=== PATIENT | male | born 1985 | race Caucasian/White ===

== ENCOUNTER 2018-11-05 08:14 | Day surgery (SDC) | payer MEDICAID ==
[~2018-11-05] VITALS: Ht 180.3 cm; Wt 196.4 kg
[~2018-11-05 08:14] MED LIST: ARMO250T4 PO; BUSP10TA10 PO; LAMO100T89 PO; LANS30TA4 PO; LOSA25TA96 PO; LURA80TA3 PO; MONT10TA21; MULT-1085 PO; TRAZ-251 PO; VENL150C2 PO
[2018-11-05 08:25] VITALS: BP 149/93
[2018-11-05] MEDS ORDERED: MIDAZolam 5mg/5ml vial ONE (08:31)
[2018-11-05] MEDS ORDERED: LIDOcaine Viscous 15ml cup ONE (08:31)
[2018-11-05] MEDS ORDERED: fentaNYL/PF 50MCG/1 ML 2ML syringe ONE (08:31)
[2018-11-05] MEDS ORDERED: PRO100T PO ×2 (08:34→08:42)
[2018-11-05] MEDS ORDERED: LOSA100T57 PO (08:37)
[2018-11-05] MEDS ORDERED: BUSP10TA11 PO (08:42)
[2018-11-05] MEDS ORDERED: PANT-47 PO (08:43)
[2018-11-05] MEDS ORDERED: LAMO100T41 PO (08:43)
[2018-11-05] MEDS ORDERED: LOSA25TA96 PO (08:44)
[2018-11-05] MEDS ORDERED: LURA80TA3 PO (08:44)
[2018-11-05] MEDS ORDERED: VENL-190 (08:45)
[2018-11-05] MEDS ORDERED: MULT-269 PO (08:46)
[2018-11-05 09:38] VITALS: BP 137/77
[2018-11-05 09:48] VITALS: BP 140/87
[2018-11-05 09:58] VITALS: BP 138/80
== END 2018-11-05 10:10 | disposition home or self-care (01) ==
LOC: GI LAB 08:14
PROVIDERS: ATTEND Internal Medicine Gastroenterology
DX: R13.10 Dysphagia, unspecified (principal); K29.50 Unspecified chronic gastritis without bleeding; K31.7 Polyp of stomach and duodenum; K21.0 Gastro-esophageal reflux disease with esophagitis; K44.9 Diaphragmatic hernia without obstruction or gangrene; E66.01 Morbid (severe) obesity due to excess calories; Z79.899 Other long term (current) drug therapy
CPT/HCPCS: 43239; 43251; J2250; J3010; 99152; A4620

== ENCOUNTER 2019-11-14 12:30 | Day surgery (SDC) | payer MEDICAID ==
[~2019-11-14 12:30] MED LIST changes: -ARMO250T4 PO; -BUSP10TA10 PO; +BUSP10TA11 PO; +LAMO100T41 PO; -LAMO100T89 PO; -LANS30TA4 PO; -MONT10TA21; -MULT-1085 PO; +MULT-269 PO; +PANT-47 PO; +PRO100T PO; -TRAZ-251 PO; +VENL-190; -VENL150C2 PO
[2019-11-14] MEDS ORDERED: LIDOcaine 2% 5ml jelly ONE (14:11)
== END 2019-11-14 14:37 | disposition home or self-care (01) ==
LOC: WOUND CARE 12:30
PROVIDERS: ATTEND Nurse Practitioner
DX: L05.91 Pilonidal cyst without abscess (principal); S31.809D Unspecified open wound of unspecified buttock, subsequent encounter; L98.492 Non-pressure chronic ulcer of skin of other sites with fat layer exposed; E66.01 Morbid (severe) obesity due to excess calories; K21.9 Gastro-esophageal reflux disease without esophagitis; K29.50 Unspecified chronic gastritis without bleeding; K44.0 Diaphragmatic hernia with obstruction, without gangrene; F32.9 Major depressive disorder, single episode, unspecified; F41.9 Anxiety disorder, unspecified; F40.240 Claustrophobia; Z86.14 Personal history of Methicillin resistant Staphylococcus aureus infection; Z79.899 Other long term (current) drug therapy; X58.XXXD Exposure to other specified factors, subsequent encounter
CPT/HCPCS: 97597

== ENCOUNTER 2019-11-19 13:28 | Day surgery (SDC) | payer MEDICAID ==
[2019-11-19] MEDS ORDERED: LIDOcaine 2% 5ml jelly ONE (14:33)
== END 2019-11-19 14:50 | disposition home or self-care (01) ==
LOC: WOUND CARE 13:28
PROVIDERS: ATTEND Nurse Practitioner
DX: L05.91 Pilonidal cyst without abscess (principal); S31.809D Unspecified open wound of unspecified buttock, subsequent encounter; E66.01 Morbid (severe) obesity due to excess calories; R13.10 Dysphagia, unspecified; K21.9 Gastro-esophageal reflux disease without esophagitis; K29.50 Unspecified chronic gastritis without bleeding; K44.0 Diaphragmatic hernia with obstruction, without gangrene; F32.9 Major depressive disorder, single episode, unspecified; Z79.899 Other long term (current) drug therapy; Z86.14 Personal history of Methicillin resistant Staphylococcus aureus infection; X58.XXXD Exposure to other specified factors, subsequent encounter
CPT/HCPCS: 97597

== ENCOUNTER 2019-11-26 11:20 | Day surgery (SDC) | payer MEDICAID ==
[2019-11-26] MEDS ORDERED: LIDOcaine 2% 5ml jelly ONE (11:33)
== END 2019-11-26 13:01 | disposition home or self-care (01) ==
LOC: WOUND CARE 11:20
PROVIDERS: ATTEND Nurse Practitioner
DX: L05.91 Pilonidal cyst without abscess (principal); S31.809D Unspecified open wound of unspecified buttock, subsequent encounter; L98.492 Non-pressure chronic ulcer of skin of other sites with fat layer exposed; E66.01 Morbid (severe) obesity due to excess calories; R13.10 Dysphagia, unspecified; K21.9 Gastro-esophageal reflux disease without esophagitis; K29.50 Unspecified chronic gastritis without bleeding; K44.0 Diaphragmatic hernia with obstruction, without gangrene; F32.9 Major depressive disorder, single episode, unspecified; F41.9 Anxiety disorder, unspecified; Z79.899 Other long term (current) drug therapy; Z86.14 Personal history of Methicillin resistant Staphylococcus aureus infection; Z68.44 Body mass index [BMI] 60.0-69.9, adult; X58.XXXD Exposure to other specified factors, subsequent encounter
CPT/HCPCS: 97597

== ENCOUNTER 2019-12-05 09:05 | Outpatient (CLI) | payer MEDICAID ==
[2019-12-05] MEDS ORDERED: LIDOcaine 2% 5ml jelly ONE (09:50)
== END 2019-12-05 23:59 | disposition home or self-care (01) ==
LOC: WOUND CARE 09:05
PROVIDERS: ATTEND Nurse Practitioner
DX: L05.91 Pilonidal cyst without abscess (principal); S31.809D Unspecified open wound of unspecified buttock, subsequent encounter; L98.492 Non-pressure chronic ulcer of skin of other sites with fat layer exposed; E66.01 Morbid (severe) obesity due to excess calories; R13.10 Dysphagia, unspecified; K21.9 Gastro-esophageal reflux disease without esophagitis; K44.0 Diaphragmatic hernia with obstruction, without gangrene; F32.9 Major depressive disorder, single episode, unspecified; F40.240 Claustrophobia; F41.9 Anxiety disorder, unspecified; Z79.899 Other long term (current) drug therapy; Z86.14 Personal history of Methicillin resistant Staphylococcus aureus infection; Z68.44 Body mass index [BMI] 60.0-69.9, adult; X58.XXXD Exposure to other specified factors, subsequent encounter
CPT/HCPCS: 97597

== ENCOUNTER 2019-12-17 10:44 | Outpatient (CLI) | payer MEDICAID ==
[2019-12-17] MEDS ORDERED: LIDOcaine 2% 5ml jelly ONE (11:28)
== END 2019-12-17 23:59 | disposition home or self-care (01) ==
LOC: WOUND CARE 10:44 → EDSTATUS 11:00 → WOUND CARE 23:59
PROVIDERS: ATTEND Nurse Practitioner
DX: L05.91 Pilonidal cyst without abscess (principal); S31.809D Unspecified open wound of unspecified buttock, subsequent encounter; L98.492 Non-pressure chronic ulcer of skin of other sites with fat layer exposed; E66.01 Morbid (severe) obesity due to excess calories; R13.10 Dysphagia, unspecified; K21.9 Gastro-esophageal reflux disease without esophagitis; K44.0 Diaphragmatic hernia with obstruction, without gangrene; F32.9 Major depressive disorder, single episode, unspecified; F40.240 Claustrophobia; F41.9 Anxiety disorder, unspecified; Z79.899 Other long term (current) drug therapy; Z86.14 Personal history of Methicillin resistant Staphylococcus aureus infection; Z68.44 Body mass index [BMI] 60.0-69.9, adult; X58.XXXD Exposure to other specified factors, subsequent encounter
CPT/HCPCS: 97597

== ENCOUNTER 2019-12-24 11:01 | Outpatient (CLI) | payer MEDICAID ==
[2019-12-24] MEDS ORDERED: LIDOcaine 2% 5ml jelly ONE (11:15)
[2019-12-24 12:12] LABS: BASOPHILS % (AUTO) 0 % (0-1); EOSINOPHILS # (AUTO) 0.1 X10'3 (0-0.9); LYMPHOCYTES % (AUTO) 32.1 % (21-51); MEAN CORPUSCULAR HGB CONC 34.2 g/dL (33.0-36.5); MEAN CORPUSCULAR VOLUME 93.7 FL (78-98); MEAN PLATELET VOLUME 8.1 FL (7.4-10.4); MONOCYTES # (AUTO) 0.5 X10'3 (0-0.9); MONOCYTES % (AUTO) 8.1 % (2-12); NEUTROPHILS # (AUTO) 3.6 X10'3 (1.8-7.7); NEUTROPHILS % (AUTO) 58.8 % (42-75); PRE OP HEMATOCRIT 42.6 % (42.0-52.0); PRE OP HEMOGLOBIN 14.6 g/dL (14.0-17.9); PRE OP PLATELET COUNT 236 X10'3 (140-440); RED BLOOD COUNT 4.55 X10'6 (4.70-6.10); RED CELL DISTRIBUTION WIDTH 13.4 % (11.5-14.5)
[2019-12-24 12:32] LABS: ALBUMIN 3.6 G/DL (3.4-5.0); ALKALINE PHOSPHATASE 76 IU/L (46-116); BLOOD UREA NITROGEN 9 MG/DL (7-18); BUN/CREATININE RATIO 11.4 (5.4-32.0); C-REACTIVE PROTEIN 0.17 MG/DL (0.0-0.5); CALCIUM 8.8 MG/DL (8.5-10.1); CHLORIDE 107 MMOL/L (99-107); CREATININE 0.79 MG/DL (0.60-1.10); PRE OP ANION GAP 8 (8-16); PRE OP AST 43 U/L (10-37); PRE OP BILIRUB, TOTAL 0.7 MG/DL (0.0-1.0); PRE OP GLUCOSE 113 MG/DL (70-104); PRE OP POTASSIUM 3.5 MMOL/L (3.4-5.1); PRE OP SODIUM 142 MMOL/L (135-145); TOTAL CARBON DIOXIDE 27.4 MMOL/L (24-32); TOTAL PROTEIN 7.1 G/DL (6.4-8.2); eGFR > 90 ML/MIN
[2019-12-24 12:45] LABS: PRE OP ALT 84 U/L (30-65)
== END 2019-12-24 23:59 | disposition home or self-care (01) ==
LOC: WOUND CARE 11:01
PROVIDERS: ATTEND Nurse Practitioner
DX: L05.91 Pilonidal cyst without abscess (principal); S31.809D Unspecified open wound of unspecified buttock, subsequent encounter; L98.492 Non-pressure chronic ulcer of skin of other sites with fat layer exposed; E66.01 Morbid (severe) obesity due to excess calories; R13.10 Dysphagia, unspecified; K21.9 Gastro-esophageal reflux disease without esophagitis; R00.0 Tachycardia, unspecified; K44.0 Diaphragmatic hernia with obstruction, without gangrene; F32.9 Major depressive disorder, single episode, unspecified; F40.240 Claustrophobia; F41.9 Anxiety disorder, unspecified; Z79.899 Other long term (current) drug therapy; Z86.14 Personal history of Methicillin resistant Staphylococcus aureus infection; Z68.44 Body mass index [BMI] 60.0-69.9, adult; X58.XXXD Exposure to other specified factors, subsequent encounter
CPT/HCPCS: 36415; 80053; 85025; 85651; 86140; 87635; 93005; 97597

== ENCOUNTER 2020-01-01 09:28 | Day surgery (SDC) | payer MEDICAID ==
[~2020-01-01] VITALS: Ht 182.9 cm; Wt 206.0 kg
[2020-01-01 09:40] VITALS: BP 155/92
[2020-01-01] MEDS ORDERED: ceFAZolin inj. 3,000 MG in normal saline 100ml IV soln 100 ML IV ONE (10:00)
[2020-01-01] MEDS ORDERED: ringers solution, lacted 1,000 ML IV SCH ×2 (10:23→11:30)
[2020-01-01] MEDS ORDERED: famotidine 20mg tablet PO ONE (10:23)
[2020-01-01] MEDS ORDERED: CETI10TA14 PO (10:58)
[2020-01-01] MEDS ORDERED: ATOR10TA70 PO (10:58)
[2020-01-01] MEDS ORDERED: LOSA100T57 PO (10:58)
[2020-01-01] MEDS ORDERED: FLUT16SP26 BOTHNARES (10:58)
[2020-01-01] MEDS ORDERED: LAMO200T10 PO (10:58)
[2020-01-01] MEDS ORDERED: CHOL500050 PO (10:58)
[2020-01-01] MEDS ORDERED: LURA120T PO (10:58)
[2020-01-01] MEDS ORDERED: MODA200T48 PO (10:58)
[2020-01-01] MEDS ORDERED: ZAFI10TA2 PO (10:58)
[2020-01-01] MEDS ORDERED: VENL150C58 PO (10:58)
[2020-01-01] MEDS ORDERED: acetaminophen 1,000mg/100ml IV 100 ML IV PRN (11:30)
[2020-01-01] MEDS ORDERED: ondansetron/PF 4mg/2ml inj IV PRN (11:30)
[2020-01-01] MEDS ORDERED: meperidine/PF 25mg/ml syringe IV PRN (11:30)
[2020-01-01] MEDS ORDERED: HYDROmorphone/PF 0.2 MG/ML SYRINGE IV PRN ×2 (11:30)
[2020-01-01] MEDS ORDERED: morphine 2 MG/ML inj. syringe IV PRN (11:30)
[2020-01-01] MEDS ORDERED: proCHLORperazine 10 MG/2 ml inj IV PRN (11:30)
[2020-01-01] MEDS ORDERED: morphine 4 MG/ML inj SYRINge IV PRN (11:30)
[2020-01-01] MEDS ORDERED: fentaNYL/PF 50MCG/1 ML 2ML syringe ONE (12:30)
[2020-01-01] MEDS ORDERED: midazolam 2 mg/2 ml injection ONE (12:31)
[2020-01-01] MEDS ORDERED: sevoflurane 250ml liquid IH ONE (13:10)
[2020-01-01] MEDS ORDERED: clindamycin phosphate 150mg/ml inj. ONE ×2 (13:23→13:24)
[2020-01-01] MEDS ORDERED: propofol inj 20 ML IV ONE ×2 (13:40)
[2020-01-01] MEDS ORDERED: dexamethasone sod phosphate 4mg/ml inj. ONE (13:40)
[2020-01-01] MEDS ORDERED: ondansetron/PF 4mg/2ml inj ONE (13:40)
[2020-01-01] MEDS ORDERED: LIDOcaine 2% (20mg/ml) 5ml vial ONE (13:40)
[2020-01-01] MEDS ORDERED: sugammadex 200mg/2ml injection IV ONE (13:40)
[2020-01-01] MEDS ORDERED: rocuronium 10mg/ml inj IV ONE (13:41)
[2020-01-01] MEDS ORDERED: morphine 10mg/ml inj. ONE (14:23)
[2020-01-01 14:29] VITALS: BP 108/59
--- NOTE | 2020-01-01 14:29 | NUR ---
Received from OR via [facility] , accompanied by Anesthesiologist YELITZA and report given by Anesthesiolgist. PATIENT WITH 20G PIV IN LEFT HAND RUNNING LR AT 100. DENIES PAIN .VSS. DRESSING TO COCCYX IS CDI. VAC PULLING WITHOUT LEAKS. Addendum: 01/01/20 at 1443 by Jeff Smith RN, RN Amended: Links added.
[2020-01-01 14:39] VITALS: BP 125/67
[2020-01-01 14:49] VITALS: BP 132/69
[2020-01-01 14:59] VITALS: BP 130/70
[2020-01-01 15:09] VITALS: BP 113/79
--- NOTE | 2020-01-01 15:19 | NUR ---
PATIENT AND FAMILY AND THEY HAVE VERBALIZED UNDERSTANDING, OPPORTUNITY TO ASK QUESTIONS GIVEN AND PATIENT COMFORTABLE WITH DC. IV TAKEN OUT WITHOUT COMPLICATION. PATIENT HAS MET ALL DC CRITERIA FOR DC HOME. I HAVE REVIEWED D/C INSTRUCTIONS WITH OUT VIA WHEELCHAIR WHERE PATIENT WAS TAKEN HOME WITH ALL BELONGINGS. FAMILY GAVE PATIENT TRANSPORT HOME. DISCUSSED CPAP USE WITH MOTHER AND PATIENT. DENIES PAIN CURRENTLY. Addendum: 01/01/20 at 1550 by Jeff Smith RN, RN Amended: Links added.
== END 2020-01-01 15:19 | disposition home or self-care (01) ==
LOC: PAS 09:28
PROVIDERS: ATTEND Surgery
DX: T81.89XA Other complications of procedures, not elsewhere classified, initial encounter (principal); F32.9 Major depressive disorder, single episode, unspecified; G47.33 Obstructive sleep apnea (adult) (pediatric); J45.909 Unspecified asthma, uncomplicated; F41.9 Anxiety disorder, unspecified; I10 Essential (primary) hypertension; E66.01 Morbid (severe) obesity due to excess calories; Z88.8 Allergy status to other drugs, medicaments and biological substances; Z88.2 Allergy status to sulfonamides; Z86.14 Personal history of Methicillin resistant Staphylococcus aureus infection; Z79.899 Other long term (current) drug therapy; Y83.8 Other surgical procedures as the cause of abnormal reaction of the patient, or of later complication, without mention of misadventure at the time of the procedure; Y92.89 Other specified places as the place of occurrence of the external cause
CPT/HCPCS: 11042; 82948; 97607; C9399; J0690; J1100; J2001; J2250; J2270; J2405; J2704; J3010; J3490; J7120; A4618; A6550; A7000

== ENCOUNTER 2020-01-03 12:13 | Outpatient (CLI) | payer MEDICAID ==
[~2020-01-03 12:13] MED LIST changes: +ATOR10TA70 PO; +CETI10TA14 PO; +CHOL500050 PO; +FLUT16SP26 BOTHNARES; -LAMO100T41 PO; +LAMO200T10 PO; +LOSA100T57 PO; -LOSA25TA96 PO; +LURA120T PO; -LURA80TA3 PO; +MODA200T48 PO; -PRO100T PO; -VENL-190; +VENL150C58 PO; +ZAFI10TA2 PO
[2020-01-03] MEDS ORDERED: LIDOcaine 2% 5ml jelly ONE (12:26)
== END 2020-01-03 23:59 | disposition home or self-care (01) ==
LOC: WOUND CARE 12:13 → EDSTATUS 12:30 → WOUND CARE 23:59
PROVIDERS: ATTEND Nurse Practitioner
DX: L05.91 Pilonidal cyst without abscess (principal); S31.809D Unspecified open wound of unspecified buttock, subsequent encounter; L98.492 Non-pressure chronic ulcer of skin of other sites with fat layer exposed; E66.01 Morbid (severe) obesity due to excess calories; K21.9 Gastro-esophageal reflux disease without esophagitis; K44.0 Diaphragmatic hernia with obstruction, without gangrene; F32.9 Major depressive disorder, single episode, unspecified; F40.240 Claustrophobia; F41.9 Anxiety disorder, unspecified; Z79.899 Other long term (current) drug therapy; K29.50 Unspecified chronic gastritis without bleeding; Z86.14 Personal history of Methicillin resistant Staphylococcus aureus infection; Z68.44 Body mass index [BMI] 60.0-69.9, adult; X58.XXXD Exposure to other specified factors, subsequent encounter
CPT/HCPCS: 11042

== ENCOUNTER 2020-01-06 11:20 | Outpatient (CLI) | payer MEDICAID ==
[2020-01-06] MEDS ORDERED: LIDOcaine 2% 5ml jelly ONE (12:23)
== END 2020-01-06 23:59 | disposition home or self-care (01) ==
LOC: WOUND CARE 11:20
PROVIDERS: ATTEND Nurse Practitioner Family
DX: L05.91 Pilonidal cyst without abscess (principal); S31.809D Unspecified open wound of unspecified buttock, subsequent encounter; L98.492 Non-pressure chronic ulcer of skin of other sites with fat layer exposed; E66.01 Morbid (severe) obesity due to excess calories; K21.9 Gastro-esophageal reflux disease without esophagitis; K44.0 Diaphragmatic hernia with obstruction, without gangrene; G47.33 Obstructive sleep apnea (adult) (pediatric); J45.909 Unspecified asthma, uncomplicated; F32.9 Major depressive disorder, single episode, unspecified; F40.240 Claustrophobia; F41.9 Anxiety disorder, unspecified; Z79.899 Other long term (current) drug therapy; K29.50 Unspecified chronic gastritis without bleeding; Z86.14 Personal history of Methicillin resistant Staphylococcus aureus infection; Z98.890 Other specified postprocedural states; Z68.44 Body mass index [BMI] 60.0-69.9, adult; X58.XXXD Exposure to other specified factors, subsequent encounter
CPT/HCPCS: 97605

== ENCOUNTER 2020-01-09 09:14 | Emergency (ER) | payer MEDICAID ==
[~2020-01-09] VITALS: Ht 180.3 cm; Wt 206.4 kg
[2020-01-09 09:23] VITALS: BP 185/80
== END 2020-01-09 11:07 | disposition home or self-care (01) ==
LOC: ER 09:14
DX: L02.31 Cutaneous abscess of buttock (principal); Z98.890 Other specified postprocedural states; Z88.2 Allergy status to sulfonamides; Z88.1 Allergy status to other antibiotic agents; Z88.8 Allergy status to other drugs, medicaments and biological substances; Z79.899 Other long term (current) drug therapy
CPT/HCPCS: 99281; 99282

== ENCOUNTER 2020-01-13 10:22 | Outpatient (CLI) | payer MEDICAID ==
[~2020-01-13 10:22] MED LIST changes: +LAMO100T41 PO; +LOSA25TA96 PO; +LURA80TA3 PO; +PRO100T PO; +VENL-190
[2020-01-13] MEDS ORDERED: LIDOcaine 2% 5ml jelly ONE (11:20)
[2020-01-13] MEDS ORDERED: Dakins solution (1/4 strength) 473ml solution TP SCH (12:00)
== END 2020-01-13 23:59 | disposition home or self-care (01) ==
LOC: WOUND CARE 10:22
PROVIDERS: ATTEND Nurse Practitioner Family
DX: L05.91 Pilonidal cyst without abscess (principal); S31.809D Unspecified open wound of unspecified buttock, subsequent encounter; L98.492 Non-pressure chronic ulcer of skin of other sites with fat layer exposed; E66.01 Morbid (severe) obesity due to excess calories; K21.9 Gastro-esophageal reflux disease without esophagitis; K44.0 Diaphragmatic hernia with obstruction, without gangrene; F32.9 Major depressive disorder, single episode, unspecified; F40.240 Claustrophobia; F41.9 Anxiety disorder, unspecified; Z79.899 Other long term (current) drug therapy; K29.50 Unspecified chronic gastritis without bleeding; Z86.14 Personal history of Methicillin resistant Staphylococcus aureus infection; Z98.890 Other specified postprocedural states; Z68.44 Body mass index [BMI] 60.0-69.9, adult; X58.XXXD Exposure to other specified factors, subsequent encounter
CPT/HCPCS: G0463

== ENCOUNTER 2020-01-14 08:05 | Outpatient (CLI) | payer MEDICAID ==
[~2020-01-14 08:05] MED LIST changes: -LAMO100T41 PO; -LOSA25TA96 PO; -LURA80TA3 PO; -PRO100T PO; -VENL-190
== END 2020-01-14 23:59 | disposition home or self-care (01) ==
LOC: WOUND CARE 08:05
PROVIDERS: ATTEND Nurse Practitioner
DX: L05.91 Pilonidal cyst without abscess (principal); S31.809D Unspecified open wound of unspecified buttock, subsequent encounter; K44.9 Diaphragmatic hernia without obstruction or gangrene; K21.9 Gastro-esophageal reflux disease without esophagitis; E66.01 Morbid (severe) obesity due to excess calories; G47.33 Obstructive sleep apnea (adult) (pediatric); J45.909 Unspecified asthma, uncomplicated; K29.50 Unspecified chronic gastritis without bleeding; I10 Essential (primary) hypertension; F41.9 Anxiety disorder, unspecified; F32.9 Major depressive disorder, single episode, unspecified; F40.240 Claustrophobia; Z86.14 Personal history of Methicillin resistant Staphylococcus aureus infection; Z79.899 Other long term (current) drug therapy; Z98.890 Other specified postprocedural states; Z68.44 Body mass index [BMI] 60.0-69.9, adult; X58.XXXD Exposure to other specified factors, subsequent encounter
CPT/HCPCS: G0463

== ENCOUNTER 2020-01-16 08:12 | Outpatient (CLI) | payer MEDICAID ==
[2020-01-16] MEDS ORDERED: LIDOcaine 2% 5ml jelly ONE (08:37)
== END 2020-01-16 23:59 | disposition home or self-care (01) ==
LOC: WOUND CARE 08:12
PROVIDERS: ATTEND Nurse Practitioner
DX: L05.91 Pilonidal cyst without abscess (principal); S31.809D Unspecified open wound of unspecified buttock, subsequent encounter; L98.492 Non-pressure chronic ulcer of skin of other sites with fat layer exposed; E66.01 Morbid (severe) obesity due to excess calories; K21.9 Gastro-esophageal reflux disease without esophagitis; K44.0 Diaphragmatic hernia with obstruction, without gangrene; G47.33 Obstructive sleep apnea (adult) (pediatric); J45.909 Unspecified asthma, uncomplicated; F32.9 Major depressive disorder, single episode, unspecified; F40.240 Claustrophobia; F41.9 Anxiety disorder, unspecified; Z79.899 Other long term (current) drug therapy; K29.50 Unspecified chronic gastritis without bleeding; Z86.14 Personal history of Methicillin resistant Staphylococcus aureus infection; Z98.890 Other specified postprocedural states; Z68.44 Body mass index [BMI] 60.0-69.9, adult; X58.XXXD Exposure to other specified factors, subsequent encounter
CPT/HCPCS: 11042

== ENCOUNTER 2020-01-22 09:46 | Outpatient (CLI) | payer MEDICAID ==
[2020-01-22] MEDS ORDERED: LIDOcaine 2% 5ml jelly ONE (10:27)
== END 2020-01-22 23:59 | disposition home or self-care (01) ==
LOC: WOUND CARE 09:46
PROVIDERS: ATTEND Nurse Practitioner
DX: L05.91 Pilonidal cyst without abscess (principal); S31.809D Unspecified open wound of unspecified buttock, subsequent encounter; L98.492 Non-pressure chronic ulcer of skin of other sites with fat layer exposed; E66.01 Morbid (severe) obesity due to excess calories; K21.9 Gastro-esophageal reflux disease without esophagitis; K44.0 Diaphragmatic hernia with obstruction, without gangrene; G47.33 Obstructive sleep apnea (adult) (pediatric); J45.909 Unspecified asthma, uncomplicated; F32.9 Major depressive disorder, single episode, unspecified; F40.240 Claustrophobia; F41.9 Anxiety disorder, unspecified; Z79.899 Other long term (current) drug therapy; K29.50 Unspecified chronic gastritis without bleeding; Z86.14 Personal history of Methicillin resistant Staphylococcus aureus infection; Z98.890 Other specified postprocedural states; Z68.44 Body mass index [BMI] 60.0-69.9, adult; X58.XXXD Exposure to other specified factors, subsequent encounter
CPT/HCPCS: 11042

== ENCOUNTER 2020-01-29 08:28 | Outpatient (CLI) | payer MEDICAID ==
[2020-01-29] MEDS ORDERED: LIDOcaine 2% 5ml jelly ONE (08:51)
== END 2020-01-29 23:59 | disposition home or self-care (01) ==
LOC: WOUND CARE 08:28
PROVIDERS: ATTEND Nurse Practitioner
DX: L05.91 Pilonidal cyst without abscess (principal); S31.809D Unspecified open wound of unspecified buttock, subsequent encounter; L98.492 Non-pressure chronic ulcer of skin of other sites with fat layer exposed; E66.01 Morbid (severe) obesity due to excess calories; K21.9 Gastro-esophageal reflux disease without esophagitis; K44.0 Diaphragmatic hernia with obstruction, without gangrene; G47.33 Obstructive sleep apnea (adult) (pediatric); J45.909 Unspecified asthma, uncomplicated; K29.50 Unspecified chronic gastritis without bleeding; I10 Essential (primary) hypertension; R00.0 Tachycardia, unspecified; F32.9 Major depressive disorder, single episode, unspecified; F40.240 Claustrophobia; F41.9 Anxiety disorder, unspecified; Z79.899 Other long term (current) drug therapy; Z98.890 Other specified postprocedural states; Z86.14 Personal history of Methicillin resistant Staphylococcus aureus infection; Z68.44 Body mass index [BMI] 60.0-69.9, adult; X58.XXXD Exposure to other specified factors, subsequent encounter
CPT/HCPCS: 11042; 97605

== ENCOUNTER 2020-02-05 07:57 | Outpatient (CLI) | payer MEDICAID | END 2020-02-05 23:59 | disposition home or self-care (01) | LOC: WOUND CARE 07:57 | PROVIDERS: ATTEND Nurse Practitioner | DX: L05.91 Pilonidal cyst without abscess (principal); S31.809D Unspecified open wound of unspecified buttock, subsequent encounter; E66.01 Morbid (severe) obesity due to excess calories; K21.9 Gastro-esophageal reflux disease without esophagitis; K44.0 Diaphragmatic hernia with obstruction, without gangrene; G47.33 Obstructive sleep apnea (adult) (pediatric); J45.909 Unspecified asthma, uncomplicated; K29.50 Unspecified chronic gastritis without bleeding; I10 Essential (primary) hypertension; R00.0 Tachycardia, unspecified; F32.9 Major depressive disorder, single episode, unspecified; F40.240 Claustrophobia; F41.9 Anxiety disorder, unspecified; Z79.899 Other long term (current) drug therapy; Z98.890 Other specified postprocedural states; Z86.14 Personal history of Methicillin resistant Staphylococcus aureus infection; Z68.44 Body mass index [BMI] 60.0-69.9, adult; X58.XXXD Exposure to other specified factors, subsequent encounter | CPT/HCPCS: 97605 ==

== ENCOUNTER → 2020-02-12 | Outpatient (CLI) | payer MEDICAID ==
[~2020-02-12] MED LIST changes: +LIDOcaine 2% 5ml jelly ONE
== END | disposition home or self-care (01) ==
LOC: WOUND CARE 08:00
PROVIDERS: ATTEND Nurse Practitioner Family
DX: L05.91 Pilonidal cyst without abscess (principal); S31.809D Unspecified open wound of unspecified buttock, subsequent encounter; L98.492 Non-pressure chronic ulcer of skin of other sites with fat layer exposed; E66.01 Morbid (severe) obesity due to excess calories; K21.9 Gastro-esophageal reflux disease without esophagitis; K44.0 Diaphragmatic hernia with obstruction, without gangrene; G47.33 Obstructive sleep apnea (adult) (pediatric); J45.909 Unspecified asthma, uncomplicated; K29.50 Unspecified chronic gastritis without bleeding; I10 Essential (primary) hypertension; F32.9 Major depressive disorder, single episode, unspecified; F40.240 Claustrophobia; F41.9 Anxiety disorder, unspecified; Z79.899 Other long term (current) drug therapy; Z98.890 Other specified postprocedural states; Z86.14 Personal history of Methicillin resistant Staphylococcus aureus infection; Z68.44 Body mass index [BMI] 60.0-69.9, adult; X58.XXXD Exposure to other specified factors, subsequent encounter
CPT/HCPCS: 97597

== ENCOUNTER 2020-02-19 10:48 | Outpatient (CLI) | payer MEDICAID ==
[~2020-02-19 10:48] MED LIST changes: -LIDOcaine 2% 5ml jelly ONE
[2020-02-19] MEDS ORDERED: LIDOcaine 2% 5ml jelly ONE (11:17)
== END 2020-02-19 23:59 | disposition home or self-care (01) ==
LOC: WOUND CARE 10:48
PROVIDERS: ATTEND Nurse Practitioner
DX: L05.91 Pilonidal cyst without abscess (principal); S31.809D Unspecified open wound of unspecified buttock, subsequent encounter; L98.492 Non-pressure chronic ulcer of skin of other sites with fat layer exposed; E66.01 Morbid (severe) obesity due to excess calories; K21.9 Gastro-esophageal reflux disease without esophagitis; K44.0 Diaphragmatic hernia with obstruction, without gangrene; G47.33 Obstructive sleep apnea (adult) (pediatric); J45.909 Unspecified asthma, uncomplicated; K29.50 Unspecified chronic gastritis without bleeding; I10 Essential (primary) hypertension; F32.9 Major depressive disorder, single episode, unspecified; F40.240 Claustrophobia; F41.9 Anxiety disorder, unspecified; Z79.899 Other long term (current) drug therapy; Z98.890 Other specified postprocedural states; Z86.14 Personal history of Methicillin resistant Staphylococcus aureus infection; Z68.44 Body mass index [BMI] 60.0-69.9, adult; X58.XXXD Exposure to other specified factors, subsequent encounter
CPT/HCPCS: 11042

== ENCOUNTER → 2020-04-16 | Outpatient (CLI) | payer MEDICAID | END | disposition home or self-care (01) | LOC: EDSTATUS 10:20 → WOUND CARE 10:45 | PROVIDERS: ATTEND Nurse Practitioner | DX: L05.91 Pilonidal cyst without abscess (principal); S31.809D Unspecified open wound of unspecified buttock, subsequent encounter; L98.492 Non-pressure chronic ulcer of skin of other sites with fat layer exposed; K21.9 Gastro-esophageal reflux disease without esophagitis; K44.0 Diaphragmatic hernia with obstruction, without gangrene; G47.33 Obstructive sleep apnea (adult) (pediatric); J45.909 Unspecified asthma, uncomplicated; K29.50 Unspecified chronic gastritis without bleeding; I10 Essential (primary) hypertension; E66.01 Morbid (severe) obesity due to excess calories; F32.9 Major depressive disorder, single episode, unspecified; F40.240 Claustrophobia; F41.9 Anxiety disorder, unspecified; Z79.899 Other long term (current) drug therapy; Z98.890 Other specified postprocedural states; Z86.14 Personal history of Methicillin resistant Staphylococcus aureus infection; Z68.44 Body mass index [BMI] 60.0-69.9, adult; X58.XXXD Exposure to other specified factors, subsequent encounter | CPT/HCPCS: 11042 ==

== ENCOUNTER 2020-06-04 10:09 | Day surgery (SDC) | payer MEDICAID ==
[~2020-06-04] VITALS: Ht 180.3 cm; Wt 204.6 kg
[~2020-06-04 10:09] MED LIST changes: +ceFAZolin/D5W- 1GM premix 50 ML IV ONE; +cefazolin/dext.iso 2gm/100ml IV ONE; +famotidine 20mg tablet PO ONE; +ringers solution, lacted 1,000 ML IV SCH
[2020-06-04] MEDS ORDERED: fentaNYL/PF 50MCG/1 ML 2ML syringe ONE (13:50)
[2020-06-04] MEDS ORDERED: succinylcholine 20mg/ml inj IV ONE (13:50)
[2020-06-04] MEDS ORDERED: midazolam 1 mg/ML 2ml injection ONE (13:50)
[2020-06-04 14:38] VITALS: BP 153/78
--- NOTE | 2020-06-04 14:38 | NUR ---
Received from OR via [facility], accompanied by Anesthesiologist Paulo and report given by Anesthesiolgist. VS WNL patient responsive no pain, wound vac attached to coccyx wound good seal no drainage. 20G left hand IVF LR at 100cc/hr.
[2020-06-04 14:50] VITALS: BP 146/76
[2020-06-04 15:00] VITALS: BP 129/80
[2020-06-04 15:07] VITALS: BP 128/73
[2020-06-04 15:10] VITALS: BP 130/72
[2020-06-04 15:20] VITALS: BP 137/69
--- NOTE | 2020-06-04 15:38 | NUR ---
Pt discharged to vehicle by wheelchair without incident. All wound vac supplies sent with patient. Back in his own clothing and surgical site remains CDI with good seal. IV dc'd. Patient states he is okay to take iboprofen and tylenol at home. Home health is going to visit for apt on Monday, wound care clinic on Monday but will call for that appointment. Pt familiar with wound vac management.
== END 2020-06-04 15:38 | disposition home or self-care (01) ==
LOC: PAS 10:09
PROVIDERS: ATTEND Surgery
DX: T81.89XA Other complications of procedures, not elsewhere classified, initial encounter (principal); J45.909 Unspecified asthma, uncomplicated; I10 Essential (primary) hypertension; G47.30 Sleep apnea, unspecified; F41.9 Anxiety disorder, unspecified; F32.9 Major depressive disorder, single episode, unspecified; E66.01 Morbid (severe) obesity due to excess calories; Z68.44 Body mass index [BMI] 60.0-69.9, adult; Z86.14 Personal history of Methicillin resistant Staphylococcus aureus infection; Z88.1 Allergy status to other antibiotic agents; Z98.890 Other specified postprocedural states; Z88.2 Allergy status to sulfonamides; Z88.8 Allergy status to other drugs, medicaments and biological substances; Z79.899 Other long term (current) drug therapy; Z91.011 Allergy to milk products; Y83.8 Other surgical procedures as the cause of abnormal reaction of the patient, or of later complication, without mention of misadventure at the time of the procedure; Y92.89 Other specified places as the place of occurrence of the external cause
CPT/HCPCS: 11042; 36415; 82948; 87426; 97605; J0330; J0690; J2250; J3010; J7120; A4618; A6550; A7000

== ENCOUNTER 2023-11-13 22:51 | Emergency (ER) | payer MEDICAID ==
[~2023-11-13] VITALS: Ht 180.3 cm; Wt 174.3 kg
[~2023-11-13 22:51] MED LIST changes: -LOSA100T57 PO; +LOSA100T58 PO; -ZAFI10TA2 PO; +ZAFI10TA7 PO; -ceFAZolin/D5W- 1GM premix 50 ML IV ONE; -cefazolin/dext.iso 2gm/100ml IV ONE; -famotidine 20mg tablet PO ONE; -ringers solution, lacted 1,000 ML IV SCH
[2023-11-13 23:59] LABS: BASOPHILS % (AUTO) 0 % (0-1); EOSINOPHILS % (AUTO) 0 % (0-6); HEMATOCRIT 38.6 % (42.0-52.0); HEMOGLOBIN 13.4 g/dl (14.0-17.9); LYMPHOCYTES # (AUTO) 1.5 X10'3 (1.1-4.8); LYMPHOCYTES % (AUTO) 11.8 % (21-51); MEAN CORPUSCULAR HGB CONC 34.8 g/dL (33.0-36.5); MEAN CORPUSCULAR VOLUME 91.8 FL (78-98); MEAN PLATELET VOLUME 8.8 FL (7.4-10.4); MONOCYTES # (AUTO) 0.6 X10'3 (0-0.9); MONOCYTES % (AUTO) 4.8 % (2-12); NEUTROPHILS # (AUTO) 10.7 X10'3 (1.8-7.7); NEUTROPHILS % (AUTO) 83.4 % (42-75); PLATELET COUNT 356 X10'3 (140-440); WHITE BLOOD COUNT 12.8 X10'3 (4.5-11.0)
[2023-11-14 00:09] LABS: ALBUMIN 4.1 G/DL (3.4-5.0); ANION GAP 15 (8-16); BLOOD UREA NITROGEN 16 MG/DL (7-18); CALCIUM 9.2 MG/DL (8.5-10.1); CHLORIDE 100 MMOL/L (99-107); CREATININE 1.14 MG/DL (0.60-1.10); ETHANOL < 10 MG/DL (<10); GLUCOSE 143 MG/DL (70-104); SALICYLATE 0.2 MG/DL (4.0-20.0); SODIUM 138 MMOL/L (135-145); TOTAL CARBON DIOXIDE 22.6 MMOL/L (24-32); eCRCL 92 ML/MIN; eGFR 71 ML/MIN
[2023-11-14 00:12] LABS: ACETAMINOPHEN < 2.0 UG/ML (10-30)
[2023-11-14 00:16] LABS: POTASSIUM 2.7 MMOL/L (3.5-5.1)
[2023-11-14] MEDS: potassium Cl 20 mEq SR tablet PO STA ×2 (00:25→02:58)
[2023-11-14 00:58] LABS: BILIRUBIN,URINE NEGATIVE (Neg); CLARITY,URINE CLEAR (Clear); COLOR,URINE YELLOW (Yellow); GLUCOSE, URINE NEGATIVE (Neg); KETONES,URINE 15 mg/dl (Neg); LEUKOCYTE ESTERASE ,URINE NEGATIVE (Neg); NITRITES, URINE NEGATIVE (Neg); OCCULT BLOOD,URINE NEGATIVE (Neg); PROTEIN,URINE NEGATIVE (Neg); UROBILINOGEN,URINE 0.2 E.U/dL (0.2-1.0)
[2023-11-14 01:03] LABS: UA COLLECTION TYPE CLN CATCH MIDSTREAM
[2023-11-14 01:14] LABS: URINE AMPHETAMINE SCREEN NEGATIVE (Neg); URINE BARBITUATE SCREEN NEGATIVE (Neg); URINE BENZODIAZEPINES SCREEN NEGATIVE (Neg); URINE CANNABINOID SCREEN NEGATIVE (Neg); URINE COCAINE SCREEN NEGATIVE (Neg); URINE METHADONE SCREEN NEGATIVE (Neg); URINE OPIATE SCREEN NEGATIVE (Neg); URINE PHENCYCLIDINE SCREEN NEGATIVE (Neg)
[2023-11-14] MEDS: LORazepam 1 MG tablet PO ONE (02:59)
[2023-11-14] MEDS ORDERED: AMLO10TA13 PO (07:23)
[2023-11-14] MEDS ORDERED: fluticasone nasal spray 16GM bottle NS PRN (08:50)
[2023-11-14] MEDS: cholecalciferol (vitamin D3) 1,000 unit (25mcg) tablet PO SCH (08:53)
[2023-11-14] MEDS: modafinil 100mg tablet PO SCH (08:55)
[2023-11-14] MEDS: venlafaxine XR 75mg capsule (Q24H) PO SCH (08:56)
[2023-11-14 09:02] VITALS: BP_DIAS 82; RESP 16; O2SAT 98
[2023-11-14] MEDS: losartan 50mg tablet PO SCH (09:17)
[2023-11-14] MEDS: multivitamins, therapeutics tablet PO SCH (09:17)
[2023-11-14 09:18] VITALS: BP_SYST 135; PULSE 91
[2023-11-14] MEDS: citalopram 20mg tablet PO SCH (09:18)
[2023-11-14] MEDS: busPIRone 5mg tablet PO SCH (09:18)
[2023-11-14] MEDS: amLODIPine 5mg tablet PO SCH (09:18)
[2023-11-14] MEDS: pantoprazole 40mg Tablet.DR PO SCH (09:19)
[2023-11-14 11:23] VITALS: TEMP 98.2
[2023-11-14] MEDS ORDERED: lamoTRIgine 100mg tablet PO SCH (21:00)
[2023-11-14] MEDS ORDERED: montelukast 10mg tablet PO SCH (21:00)
[2023-11-14] MEDS ORDERED: atorvastatin 10mg tablet PO SCH (21:00)
[2023-11-14] MEDS ORDERED: lurasidone 60mg tablet PO SCH (21:00)
== END 2023-11-14 10:25 | disposition home or self-care (01) ==
LOC: ER 22:51
DX: R45.851 Suicidal ideations (principal); F20.9 Schizophrenia, unspecified; F32.A Depression, unspecified; Z88.2 Allergy status to sulfonamides; Z88.1 Allergy status to other antibiotic agents; Z88.8 Allergy status to other drugs, medicaments and biological substances; Z79.899 Other long term (current) drug therapy; Z20.822 Contact with and (suspected) exposure to COVID-19
CPT/HCPCS: 36415; 80048; 80305; 80320; 80329; 81003; 85025; 87811; 99285

== ENCOUNTER 2024-02-29 04:52 | Inpatient (IN) | payer MEDICAID ==
[~2024-02-29] VITALS: Ht 180.3 cm; Wt 149.9 kg
[~2024-02-29 04:52] MED LIST changes: +AMLO10TA13 PO; -CHOL500050 PO; -LAMO200T10 PO; -LURA120T PO; -MODA200T48 PO
[2024-02-29] MEDS: LORazepam 2 mg/ml vial IM ONE (05:28)
[2024-02-29] MEDS: LORazepam 2 mg/ml vial IV ONE (05:34)
[2024-02-29] MEDS: diphenhydrAMINE 50 mg/ml inj IM ONE (05:53)
[2024-02-29] MEDS: haloperidol lactate 5mg/ml inj IM ONE (05:53)
[2024-02-29] MEDS: haloperidol lactate 5mg/ml inj ONE (05:57)
[2024-02-29 07:20] LABS: BASOPHILS % (AUTO) 0 % (0-1); EOSINOPHILS % (AUTO) 0.1 % (0-6); HEMATOCRIT 41.7 % (42.0-52.0); HEMOGLOBIN 14.2 g/dl (14.0-17.9); LYMPHOCYTES # (AUTO) 2.2 X10'3 (1.1-4.8); LYMPHOCYTES % (AUTO) 13.1 % (21-51); MEAN CORPUSCULAR HEMOGLOBIN 31.8 PG (27.0-31.0); MEAN CORPUSCULAR HGB CONC 34.1 g/dL (33.0-36.5); MEAN CORPUSCULAR VOLUME 93.2 FL (78-98); MEAN PLATELET VOLUME 10.5 FL (7.4-10.4); MONOCYTES # (AUTO) 1.4 X10'3 (0-0.9); MONOCYTES % (AUTO) 8.1 % (2-12); NEUTROPHILS # (AUTO) 13.5 X10'3 (1.8-7.7); NEUTROPHILS % (AUTO) 78.7 % (42-75); PLATELET COUNT 362 X10'3 (140-440); RED BLOOD COUNT 4.47 X10'6 (4.70-6.10); RED CELL DISTRIBUTION WIDTH 13.3 % (11.5-14.5); WHITE BLOOD COUNT 17.2 X10'3 (4.5-11.0)
[2024-02-29 07:36] LABS: ALBUMIN 3.9 G/DL (3.4-5.0); ANION GAP 16 (8-16); BLOOD UREA NITROGEN 11 MG/DL (7-18); BUN/CREATININE RATIO 12.8 (10.0-20.0); CALCIUM 9.1 MG/DL (8.5-10.1); CHLORIDE 101 MMOL/L (99-107); CREATININE 0.86 MG/DL (0.60-1.10); ETHANOL < 10 MG/DL (<10); GLUCOSE 111 MG/DL (70-104); SODIUM 137 MMOL/L (135-145); THYROID STIMULATING HORMONE 1.72 ulU/ml (0.34-4.50); TOTAL CARBON DIOXIDE 19.9 MMOL/L (24-32); eCRCL 122 ML/MIN; eGFR > 90 ML/MIN
[2024-02-29 07:38] LABS: POTASSIUM 2.7 MMOL/L (3.5-5.1)
[2024-02-29] MEDS ORDERED: HYDR50TA4 PO (08:08)
[2024-02-29] MEDS ORDERED: BUSP15TA3 PO (08:08)
[2024-02-29] MEDS ORDERED: VENL75CA61 PO (08:08)
[2024-02-29] MEDS ORDERED: SEMA2PEN (08:08)
[2024-02-29] MEDS ORDERED: FAMO40TA58 PO (08:08)
[2024-02-29] MEDS ORDERED: CELE-148 PO (08:08)
[2024-02-29] MEDS: potassium Cl 20 mEq SR tablet PO PRN ×2 (08:09→16:17)
[2024-02-29 10:32] LABS: BILIRUBIN,URINE NEGATIVE (Neg); CLARITY,URINE SLIGHTLY CLOUDY (Clear); COLOR,URINE YELLOW (Yellow); GLUCOSE, URINE NEGATIVE (Neg); KETONES,URINE NEGATIVE (Neg); LEUKOCYTE ESTERASE ,URINE NEGATIVE (Neg); NITRITES, URINE NEGATIVE (Neg); OCCULT BLOOD,URINE MODERATE (Neg); PROTEIN,URINE NEGATIVE (Neg); UROBILINOGEN,URINE 0.2 E.U/dL (0.2-1.0)
[2024-02-29 10:34] LABS: UA COLLECTION TYPE URINAL
[2024-02-29 10:38] LABS: BACTERIA,URINE 1+ /HPF (Neg); MUCUS STRANDS MODERATE /LPF (Neg); SQUAMOUS EPITHELIAL CELL,UR MODERATE /LPF (FEW); WBC,URINE 0-4 /HPF (0-4)
[2024-02-29 11:45] LABS: URINE AMPHETAMINE SCREEN NEGATIVE (Neg); URINE BARBITUATE SCREEN NEGATIVE (Neg); URINE BENZODIAZEPINES SCREEN NEGATIVE (Neg); URINE CANNABINOID SCREEN NEGATIVE (Neg); URINE COCAINE SCREEN NEGATIVE (Neg); URINE METHADONE SCREEN NEGATIVE (Neg); URINE OPIATE SCREEN NEGATIVE (Neg); URINE PHENCYCLIDINE SCREEN NEGATIVE (Neg)
[2024-02-29] MEDS: celeCOXIB 100mg capsule PO ONE (11:57)
[2024-02-29] MEDS: losartan 50mg tablet PO ONE (11:59)
[2024-02-29] MEDS: pantoprazole 40mg Tablet.DR PO ONE (11:59)
[2024-02-29] MEDS: famotidine 20mg tablet PO ONE (11:59)
[2024-02-29] MEDS: cetirizine 10mg tablet PO ONE (12:00)
[2024-02-29] MEDS: busPIRone 15mg tablet PO ONE (12:00)
[2024-02-29] MEDS: HYDROchlorothiazide 25mg tablet PO ONE (12:00)
[2024-02-29] MEDS: amLODIPine 5mg tablet PO ONE (12:00)
[2024-02-29] MEDS: venlafaxine XR 75mg capsule (Q24H) PO ONE ×2 (12:01→12:42)
[2024-02-29] MEDS: busPIRone 15mg tablet PO SCH (12:04)
[2024-02-29 13:55] LABS: BASOPHILS % (AUTO) 0 % (0-1); EOSINOPHILS % (AUTO) 0.3 % (0-6); HEMATOCRIT 40.6 % (42.0-52.0); HEMOGLOBIN 14.2 g/dl (14.0-17.9); LYMPHOCYTES # (AUTO) 3.2 X10'3 (1.1-4.8); LYMPHOCYTES % (AUTO) 18.7 % (21-51); MEAN CORPUSCULAR HEMOGLOBIN 32.3 PG (27.0-31.0); MEAN CORPUSCULAR HGB CONC 34.9 g/dL (33.0-36.5); MEAN CORPUSCULAR VOLUME 92.5 FL (78-98); MEAN PLATELET VOLUME 9.6 FL (7.4-10.4); MONOCYTES # (AUTO) 1.8 X10'3 (0-0.9); MONOCYTES % (AUTO) 10.4 % (2-12); NEUTROPHILS % (AUTO) 70.6 % (42-75); PLATELET COUNT 354 X10'3 (140-440); RED BLOOD COUNT 4.38 X10'6 (4.70-6.10); RED CELL DISTRIBUTION WIDTH 12.9 % (11.5-14.5)
[2024-02-29] MEDS ORDERED: celeCOXIB 100mg capsule PO SCH (20:00)
[2024-02-29 20:24] LABS: ALANINE AMINOTRANSFERASE 18 U/L (12-78); ALBUMIN 3.6 G/DL (3.4-5.0); ALBUMIN/GLOBULIN RATIO 1.2 (1.1-1.5); ALKALINE PHOSPHATASE 96 IU/L (46-116); ANION GAP 10 (8-16); ASPARTATE AMINO TRANSFERASE 15 U/L (10-37); BLOOD UREA NITROGEN 9 MG/DL (7-18); BUN/CREATININE RATIO 9.9 (10.0-20.0); CALCIUM 8.7 MG/DL (8.5-10.1); CHLORIDE 97 MMOL/L (99-107); CREATININE 0.91 MG/DL (0.60-1.10); GLUCOSE 98 MG/DL (70-104); POTASSIUM 3.2 MMOL/L (3.5-5.1); SODIUM 131 MMOL/L (135-145); TOTAL CARBON DIOXIDE 23.6 MMOL/L (24-32); TOTAL PROTEIN 6.7 G/DL (6.4-8.2); eCRCL 115 ML/MIN; eGFR > 90 ML/MIN
[2024-02-29] MEDS: atorvastatin 10mg tablet PO SCH (20:37)
[2024-02-29] MEDS: celeCOXIB 100mg capsule PO PRN (20:37)
[2024-02-29] MEDS ORDERED: ZAFIRLUKAST 10 MG PO SCH (21:00)
[2024-03-01] MEDS: amLODIPine 5mg tablet PO SCH (07:57)
[2024-03-01] MEDS: HYDROchlorothiazide 25mg tablet PO SCH (07:58)
[2024-03-01] MEDS: cetirizine 10mg tablet PO SCH (07:58)
[2024-03-01] MEDS: venlafaxine XR 75mg capsule (Q24H) PO SCH ×2 (07:58→08:06)
[2024-03-01] MEDS: pantoprazole 40mg Tablet.DR PO SCH (07:59)
[2024-03-01] MEDS: famotidine 20mg tablet PO SCH (07:59)
[2024-03-01] MEDS ORDERED: venlafaxine XR 75mg capsule (Q24H) PO SCH (08:00)
[2024-03-01] MEDS: losartan 50mg tablet PO SCH (08:00)
[2024-03-01 09:03] VITALS: BP 128/75; PULSE 102; RESP 14; TEMP 98.3; O2SAT 93
[2024-03-01 09:56] VITALS: RESP 14; O2SAT 90
[2024-03-01] MEDS ORDERED: loperamide 2mg capsule PO PRN (13:45)
[2024-03-01] MEDS ORDERED: mag hydrox/Alum hydrox/simeth 30ml oral suspension PO PRN (13:45)
[2024-03-01] MEDS ORDERED: acetaminophen 325mg tablet PO PRN (13:45)
[2024-03-01] MEDS: nystatin 15 GM powder TP SCH (13:46)
[2024-03-01] MEDS: acetaminophen 325mg tablet PO PRN (13:53)
[2024-03-01 19:00] VITALS: RESP 20; O2SAT 96
[2024-03-01 19:52] VITALS: BP 104/74; PULSE 97; RESP 20; TEMP 98; O2SAT 96
[2024-03-02 07:00] VITALS: RESP 14; O2SAT 95
[2024-03-02] MEDS: busPIRone 5mg tablet PO SCH (07:45)
[2024-03-02] MEDS: magnesium hydroxide 30ml (MOM) UD suspension PO PRN (07:58)
[2024-03-02 08:00] VITALS: BP 131/77; PULSE 72; RESP 18; TEMP 97.6; O2SAT 95
[2024-03-02 08:07] LABS: HEMOGLOBIN A1C 5.1 % (4.5-6.2)
[2024-03-02 09:01] LABS: CHOL/HDL RATIO 2.8 (0.00-4.99); CHOLESTEROL 118 MG/DL (0-200); HDL CHOLESTEROL 42 MG/DL (35-60); LDL CHOLESTEROL 72 MG/DL (50-100); THYROID STIMULATING HORMONE 2.09 ulU/ml (0.34-4.50); TRIGLYCERIDES 73 MG/DL (20-135)
[2024-03-02 15:38] LABS: BASOPHILS % (AUTO) 0.1 % (0-1); EOSINOPHILS # (AUTO) 0.1 X10'3 (0-0.9); EOSINOPHILS % (AUTO) 1.8 % (0-6); HEMATOCRIT 38.6 % (42.0-52.0); HEMOGLOBIN 13.2 g/dl (14.0-17.9); LYMPHOCYTES # (AUTO) 1.9 X10'3 (1.1-4.8); LYMPHOCYTES % (AUTO) 24.7 % (21-51); MEAN CORPUSCULAR HEMOGLOBIN 31.9 PG (27.0-31.0); MEAN CORPUSCULAR HGB CONC 34.3 g/dL (33.0-36.5); MEAN CORPUSCULAR VOLUME 93.1 FL (78-98); MEAN PLATELET VOLUME 9.5 FL (7.4-10.4); NEUTROPHILS # (AUTO) 4.8 X10'3 (1.8-7.7); NEUTROPHILS % (AUTO) 60.4 % (42-75); PLATELET COUNT 288 X10'3 (140-440); RED BLOOD COUNT 4.15 X10'6 (4.70-6.10); RED CELL DISTRIBUTION WIDTH 13.1 % (11.5-14.5); WHITE BLOOD COUNT 7.9 X10'3 (4.5-11.0)
[2024-03-02 15:54] LABS: ALANINE AMINOTRANSFERASE 16 U/L (12-78); ALBUMIN 3.4 G/DL (3.4-5.0); ALKALINE PHOSPHATASE 95 IU/L (46-116); ANION GAP 7 (8-16); ASPARTATE AMINO TRANSFERASE 16 U/L (10-37); BILIRUBIN,TOTAL 0.7 MG/DL (0.1-1.0); BLOOD UREA NITROGEN 9 MG/DL (7-18); CALCIUM 8.4 MG/DL (8.5-10.1); CHLORIDE 103 MMOL/L (99-107); CREATININE 0.69 MG/DL (0.60-1.10); GLUCOSE 99 MG/DL (70-104); POTASSIUM 3.1 MMOL/L (3.5-5.1); SODIUM 138 MMOL/L (135-145); TOTAL CARBON DIOXIDE 27.6 MMOL/L (24-32); TOTAL PROTEIN 6.7 G/DL (6.4-8.2); eCRCL 152 ML/MIN; eGFR > 90 ML/MIN
[2024-03-02 19:00] VITALS: RESP 16; O2SAT 97
[2024-03-02 20:00] VITALS: BP 123/70; PULSE 95; RESP 16; TEMP 98.3; O2SAT 97
[2024-03-02] MEDS: POTASSIUM BICARB 20meq eff tab 20 MEQ TABLET.EFF PO SCH (20:23)
[2024-03-03 05:47] VITALS: BP 123/70; PULSE 95; RESP 16; TEMP 98.3; O2SAT 94
[2024-03-03 07:00] VITALS: RESP 16; O2SAT 95
[2024-03-03 08:47] VITALS: BP 119/79; PULSE 89; RESP 16; TEMP 98.5; O2SAT 95
[2024-03-03 19:00] VITALS: RESP 16; O2SAT 96
[2024-03-03 20:00] VITALS: BP 141/75; PULSE 83; RESP 16; TEMP 98.3; O2SAT 96
[2024-03-03] MEDS: temazepam 15mg capsule PO SCH (21:32)
[2024-03-03] MEDS: Melatonin 3mg tablet PO SCH (21:33)
[2024-03-04 07:00] VITALS: BP 123/75; PULSE 91; RESP 16; TEMP 97.5; O2SAT 94
[2024-03-04 08:35] LABS: ANION GAP 9 (8-16); CHLORIDE 101 MMOL/L (99-107); SODIUM 135 MMOL/L (135-145); TOTAL CARBON DIOXIDE 24.6 MMOL/L (24-32)
[2024-03-04] MEDS: POTASSIUM BICARB 20meq eff tab 20 MEQ TABLET.EFF PO ONE (09:40)
[2024-03-04] MEDS ORDERED: VENL75CA61 PO (12:47)
[2024-03-04] MEDS ORDERED: BUSP5TAB26 PO (12:47)
[2024-03-04] MEDS ORDERED: NYSPWD TP (12:47)
[2024-03-04] MEDS ORDERED: TEMA15CA5 PO (12:47)
[2024-03-04] MEDS ORDERED: MELA3TAB39 PO (12:47)
[2024-03-04] MEDS: magnesium hydroxide 30ml (MOM) UD suspension PO ONE (17:29)
[2024-03-04 19:00] VITALS: RESP 18; O2SAT 96
[2024-03-04 20:00] VITALS: BP 115/73; PULSE 98; RESP 16; TEMP 97.5; O2SAT 96
[2024-03-05 07:00] VITALS: RESP 16; O2SAT 99
[2024-03-05 08:00] VITALS: BP 132/85; PULSE 88; RESP 16; TEMP 97.6; O2SAT 99
[2024-03-05 11:16] LABS: ALBUMIN 3.3 G/DL (3.4-5.0); ANION GAP 10 (8-16); BLOOD UREA NITROGEN 11 MG/DL (7-18); BUN/CREATININE RATIO 15.3 (10.0-20.0); CALCIUM 8.8 MG/DL (8.5-10.1); CHLORIDE 97 MMOL/L (99-107); CREATININE 0.72 MG/DL (0.60-1.10); GLUCOSE 130 MG/DL (70-104); POTASSIUM 3.5 MMOL/L (3.5-5.1); SODIUM 134 MMOL/L (135-145); TOTAL CARBON DIOXIDE 27.5 MMOL/L (24-32); eCRCL 145 ML/MIN; eGFR > 90 ML/MIN
[2024-03-05 19:00] VITALS: BP 109/64; PULSE 98; RESP 16; TEMP 97.2; O2SAT 97
[2024-03-06 07:45] VITALS: RESP 12; O2SAT 98
[2024-03-06 08:00] VITALS: BP 138/76; PULSE 100; RESP 12; TEMP 97.6; O2SAT 98
[2024-03-06 08:24] VITALS: BP_SYST 138; PULSE 100
== END 2024-03-06 14:10 | disposition home or self-care (01) | DRG 750 ==
LOC: ER 04:52 → ED HOLD 23:30 → ADULT MH 03-01 09:03
PROVIDERS: ADMIT Psychiatry & Neurology Psychiatry; ATTEND Psychiatry & Neurology Psychiatry
PROC: GZHZZZZ Group Psychotherapy (ICD-10-PCS; principal; 2024-03-01)
PROC: GZ51ZZZ Individual Psychotherapy, Behavioral (ICD-10-PCS; 2024-03-01)
DX: F20.9 Schizophrenia, unspecified (principal); R45.851 Suicidal ideations; F33.2 Major depressive disorder, recurrent severe without psychotic features; Z20.822 Contact with and (suspected) exposure to COVID-19; F41.1 Generalized anxiety disorder; Z79.899 Other long term (current) drug therapy
CPT/HCPCS: 36415; 71045; 80048; 80051; 80053; 80061; 80305; 80320; 81001; 83036; 83605; 84132; 84145; 84443; 85025; 87081; 87502; 87503; 87811; 93005; 96372; 99291; G0378; J1200; J1630; J2060

== ENCOUNTER 2024-03-11 02:57 | Emergency (ER) | payer MEDICAID ==
[~2024-03-11] VITALS: Ht 180.3 cm; Wt 150.3 kg
[~2024-03-11 02:57] MED LIST changes: -BUSP10TA11 PO; +BUSP5TAB26 PO; +CELE-148 PO; +FAMO40TA58 PO; -FLUT16SP26 BOTHNARES; +HYDR50TA4 PO; +MELA3TAB39 PO; -MULT-269 PO; +NYSPWD TP; +SEMA2PEN; +TEMA15CA5 PO; -VENL150C58 PO; +VENL75CA61 PO
[2024-03-11] MEDS ORDERED: NYSPWD TP (03:48)
[2024-03-11] MEDS ORDERED: MELA1TAB28 PO (03:48)
[2024-03-11] MEDS ORDERED: TEMA15CA5 PO (03:48)
[2024-03-11] MEDS ORDERED: BUSP10TA11 PO (03:48)
[2024-03-11] MEDS ORDERED: PANT40SU2 PO (03:48)
[2024-03-11] MEDS ORDERED: VENL37.59 PO (03:48)
[2024-03-11 03:56] LABS: BILIRUBIN,URINE NEGATIVE (Neg); CLARITY,URINE SLIGHTLY CLOUDY (Clear); COLOR,URINE YELLOW (Yellow); GLUCOSE, URINE NEGATIVE (Neg); KETONES,URINE NEGATIVE (Neg); LEUKOCYTE ESTERASE ,URINE NEGATIVE (Neg); NITRITES, URINE NEGATIVE (Neg); OCCULT BLOOD,URINE LARGE (Neg); PH,URINE 6.5 (4.8-8.0); PROTEIN,URINE NEGATIVE (Neg); UROBILINOGEN,URINE 0.2 E.U/dL (0.2-1.0)
[2024-03-11 03:57] LABS: UA COLLECTION TYPE STRAIGHT CATH
[2024-03-11 04:03] LABS: SQUAMOUS EPITHELIAL CELL,UR MANY /LPF (FEW)
[2024-03-11 04:04] LABS: BACTERIA,URINE 3+ /HPF (Neg); RBC,URINE 50-100 /HPF (0-2)
[2024-03-11 04:13] LABS: URINE AMPHETAMINE SCREEN NEGATIVE (Neg); URINE BARBITUATE SCREEN NEGATIVE (Neg); URINE BENZODIAZEPINES SCREEN NEGATIVE (Neg); URINE CANNABINOID SCREEN NEGATIVE (Neg); URINE COCAINE SCREEN NEGATIVE (Neg); URINE METHADONE SCREEN NEGATIVE (Neg); URINE OPIATE SCREEN NEGATIVE (Neg); URINE PHENCYCLIDINE SCREEN NEGATIVE (Neg)
[2024-03-11 04:29] LABS: BASOPHILS % (AUTO) 0.1 % (0-1); EOSINOPHILS % (AUTO) 0.3 % (0-6); HEMATOCRIT 40.7 % (42.0-52.0); LYMPHOCYTES # (AUTO) 2.1 X10'3 (1.1-4.8); MEAN CORPUSCULAR HEMOGLOBIN 31.8 PG (27.0-31.0); MEAN CORPUSCULAR HGB CONC 34.3 g/dL (33.0-36.5); MEAN CORPUSCULAR VOLUME 92.6 FL (78-98); MEAN PLATELET VOLUME 9.8 FL (7.4-10.4); MONOCYTES # (AUTO) 1.1 X10'3 (0-0.9); MONOCYTES % (AUTO) 7.8 % (2-12); NEUTROPHILS # (AUTO) 10.8 X10'3 (1.8-7.7); NEUTROPHILS % (AUTO) 76.8 % (42-75); PLATELET COUNT 376 X10'3 (140-440); RED CELL DISTRIBUTION WIDTH 13.1 % (11.5-14.5); WHITE BLOOD COUNT 14.1 X10'3 (4.5-11.0)
[2024-03-11 04:47] LABS: ALANINE AMINOTRANSFERASE 15 U/L (12-78); ALBUMIN 3.8 G/DL (3.4-5.0); ALKALINE PHOSPHATASE 120 IU/L (46-116); ASPARTATE AMINO TRANSFERASE 9 U/L (10-37); BILIRUBIN,TOTAL 0.6 MG/DL (0.1-1.0); BLOOD UREA NITROGEN 9 MG/DL (7-18); BUN/CREATININE RATIO 12.3 (10.0-20.0); CALCIUM 9.8 MG/DL (8.5-10.1); CREATININE 0.73 MG/DL (0.60-1.10); GLUCOSE 86 MG/DL (70-104); THYROID STIMULATING HORMONE 1.66 ulU/ml (0.34-4.50); TOTAL CARBON DIOXIDE 22.8 MMOL/L (24-32); TOTAL PROTEIN 7.6 G/DL (6.4-8.2); eCRCL 143 ML/MIN; eGFR > 90 ML/MIN
[2024-03-11 04:55] LABS: ETHANOL < 10 MG/DL (<10)
[2024-03-11 05:04] LABS: ANION GAP 11 (8-16); CHLORIDE 103 MMOL/L (99-107); SODIUM 137 MMOL/L (135-145)
[2024-03-11 05:06] LABS: POTASSIUM 2.8 MMOL/L (3.5-5.1)
[2024-03-11] MEDS: potassium bicarbonate/cit acid 25mEq tablet.effervescent PO SCH (05:26)
[2024-03-11 05:41] LABS: MAGNESIUM 1.5 MG/DL (1.5-2.4)
[2024-03-11] MEDS: FOSFOMYCIN TROMETHAMINE 3 GM PACKET PO ONE (05:51)
[2024-03-11 07:54] LABS: BILIRUBIN,URINE NEGATIVE (Neg); CLARITY,URINE CLEAR (Clear); COLOR,URINE STRAW (Yellow); GLUCOSE, URINE NEGATIVE (Neg); KETONES,URINE NEGATIVE (Neg); LEUKOCYTE ESTERASE ,URINE NEGATIVE (Neg); NITRITES, URINE NEGATIVE (Neg); OCCULT BLOOD,URINE MODERATE (Neg); PROTEIN,URINE NEGATIVE (Neg); UROBILINOGEN,URINE 0.2 E.U/dL (0.2-1.0)
[2024-03-11 07:59] LABS: UA COLLECTION TYPE CLN CATCH MIDSTREAM
[2024-03-11 08:00] LABS: WBC,URINE 0-4 /HPF (0-4)
[2024-03-11] MEDS: nystatin 15 GM powder TP SCH (08:00)
[2024-03-11] MEDS ORDERED: potassium bicarbonate/cit acid 25mEq tablet.effervescent PO SCH (08:00)
[2024-03-11 08:01] LABS: BACTERIA,URINE NONE SEEN /HPF (Neg); MUCUS STRANDS NONE SEEN /LPF (Neg); RBC,URINE 0-2 /HPF (0-2); SQUAMOUS EPITHELIAL CELL,UR FEW /LPF (FEW)
[2024-03-11] MEDS: venlafaxine XR 75mg capsule (Q24H) PO SCH (08:27)
[2024-03-11] MEDS: celeCOXIB 100mg capsule PO SCH (08:27)
[2024-03-11] MEDS: pantoprazole 40mg Tablet.DR PO SCH (08:27)
[2024-03-11] MEDS: HYDROchlorothiazide 25mg tablet PO SCH (08:28)
[2024-03-11] MEDS: busPIRone 5mg tablet PO SCH (08:28)
[2024-03-11] MEDS: amLODIPine 5mg tablet PO SCH (08:28)
[2024-03-11] MEDS: famotidine 20mg tablet PO SCH (08:29)
[2024-03-11] MEDS: losartan 50mg tablet PO SCH (08:29)
[2024-03-11] MEDS: cetirizine 10mg tablet PO SCH (08:30)
[2024-03-11 10:55] VITALS: BP 127/72; PULSE 122; RESP 20; TEMP 98.7; O2SAT 94
[2024-03-11] MEDS ORDERED: temazepam 15mg capsule PO SCH (21:00)
[2024-03-11] MEDS ORDERED: Melatonin 3mg tablet PO SCH (21:00)
[2024-03-11] MEDS ORDERED: montelukast 10mg tablet PO SCH (21:00)
[2024-03-11] MEDS ORDERED: atorvastatin 10mg tablet PO SCH (21:00)
== END 2024-03-11 10:58 | disposition home or self-care (01) ==
LOC: ER 02:57
DX: R45.851 Suicidal ideations (principal); Z88.2 Allergy status to sulfonamides; Z91.011 Allergy to milk products; Z88.1 Allergy status to other antibiotic agents; Z20.822 Contact with and (suspected) exposure to COVID-19
CPT/HCPCS: 36415; 80053; 80305; 80320; 81001; 83735; 84443; 85025; 87088; 87811; 99285; C1758

== ENCOUNTER 2024-04-14 22:46 | Emergency (ER) | payer MEDICAID ==
[~2024-04-14] VITALS: Ht 180.3 cm; Wt 181.8 kg
[~2024-04-14 22:46] MED LIST changes: +BUSP10TA11 PO; -BUSP5TAB26 PO; +MELA1TAB28 PO; -MELA3TAB39 PO; -PANT-47 PO; +PANT40SU2 PO; +VENL37.59 PO; -VENL75CA61 PO
[2024-04-14] MEDS ORDERED: LORazepam 2 mg/ml vial IM ONE (23:30)
[2024-04-14] MEDS: LORazepam 2 mg/ml vial IM ONE (23:50)
[2024-04-15 00:13] LABS: BILIRUBIN,URINE NEGATIVE (Neg); CLARITY,URINE SLIGHTLY CLOUDY (Clear); COLOR,URINE YELLOW (Yellow); GLUCOSE, URINE NEGATIVE (Neg); KETONES,URINE TRACE mg/dl (Neg); LEUKOCYTE ESTERASE ,URINE NEGATIVE (Neg); NITRITES, URINE NEGATIVE (Neg); OCCULT BLOOD,URINE NEGATIVE (Neg); PROTEIN,URINE TRACE mg/dl (Neg); UROBILINOGEN,URINE 0.2 E.U/dL (0.2-1.0)
[2024-04-15 00:31] LABS: UA COLLECTION TYPE CLN CATCH MIDSTREAM
[2024-04-15 00:34] LABS: BACTERIA,URINE 1+ /HPF (Neg); RBC,URINE NONE SEEN /HPF (0-2); SQUAMOUS EPITHELIAL CELL,UR FEW /LPF (FEW); WBC,URINE 0-4 /HPF (0-4)
[2024-04-15] MEDS: ibuprofen tablet 400 MG TABLET PO ONE (02:34)
[2024-04-15] MEDS: acetaminophen 325mg tablet PO ONE (02:35)
[2024-04-15 07:24] LABS: BASOPHILS % (AUTO) 0 % (0-1); EOSINOPHILS % (AUTO) 0.1 % (0-6); HEMATOCRIT 35.5 % (42.0-52.0); HEMOGLOBIN 12.3 g/dl (14.0-17.9); LYMPHOCYTES # (AUTO) 2.6 X10'3 (1.1-4.8); LYMPHOCYTES % (AUTO) 18.9 % (21-51); MEAN CORPUSCULAR HEMOGLOBIN 31.3 PG (27.0-31.0); MEAN CORPUSCULAR HGB CONC 34.7 g/dL (33.0-36.5); MEAN CORPUSCULAR VOLUME 90.1 FL (78-98); MEAN PLATELET VOLUME 8.9 FL (7.4-10.4); PLATELET COUNT 299 X10'3 (140-440); RED BLOOD COUNT 3.94 X10'6 (4.70-6.10); RED CELL DISTRIBUTION WIDTH 12.9 % (11.5-14.5); WHITE BLOOD COUNT 13.6 X10'3 (4.5-11.0)
[2024-04-15 07:44] LABS: ALANINE AMINOTRANSFERASE 26 U/L (12-78); ALBUMIN 3.6 G/DL (3.4-5.0); ALBUMIN/GLOBULIN RATIO 1.2 (1.1-1.5); ALKALINE PHOSPHATASE 94 IU/L (46-116); ANION GAP 16 (8-16); ASPARTATE AMINO TRANSFERASE 86 U/L (10-37); BILIRUBIN,TOTAL 1.5 MG/DL (0.1-1.0); BLOOD UREA NITROGEN 18 MG/DL (7-18); BUN/CREATININE RATIO 17.5 (10.0-20.0); CALCIUM 8.5 MG/DL (8.5-10.1); CHLORIDE 89 MMOL/L (99-107); CREATININE 1.03 MG/DL (0.60-1.10); GLUCOSE 87 MG/DL (70-104); LIPASE 14 U/L (16-77); POTASSIUM 3.1 MMOL/L (3.5-5.1); SODIUM 125 MMOL/L (135-145); TOTAL CARBON DIOXIDE 20.5 MMOL/L (24-32); TOTAL PROTEIN 6.5 G/DL (6.4-8.2); eCRCL 102 ML/MIN; eGFR 80 ML/MIN
[2024-04-15] MEDS ORDERED: potassium CL 10mEq/100ml bag 100 ML IV ONE (07:50)
[2024-04-15 08:19] LABS: MAGNESIUM 1.8 MG/DL (1.5-2.4)
[2024-04-15] MEDS ORDERED: NYSTATIN 30 GM POWDER TP SCH (09:10)
[2024-04-15 09:32] VITALS: BP 182/153; PULSE 104; RESP 18; TEMP 97.1; O2SAT 98
[2024-04-15] MEDS ORDERED: VENL150C58 PO (10:56)
[2024-04-15] MEDS ORDERED: VENL75CA61 PO (10:56)
[2024-04-15] MEDS ORDERED: BUSP15TA7 PO (10:56)
[2024-04-15] MEDS: magnesium oxide 400mg tablet PO ONE (12:49)
[2024-04-15] MEDS: potassium Cl 20 mEq SR tablet PO STA (12:49)
[2024-04-15] MEDS: nystatin 15 GM powder TP SCH (12:50)
[2024-04-15] MEDS: busPIRone 15mg tablet PO SCH (13:00)
[2024-04-15] MEDS ORDERED: nystatin 15 GM powder TP SCH ×2 (13:00)
[2024-04-15] MEDS ORDERED: QUET-1 PO (15:18)
[2024-04-15] MEDS ORDERED: ZAFIRLUKAST 10 MG PO SCH (20:00)
[2024-04-15] MEDS ORDERED: celeCOXIB 100mg capsule PO SCH (20:00)
[2024-04-15] MEDS ORDERED: non-formulary drug (Melatonin/Pyridoxine HCl (B6) (Melatonin 3 mg Tablet) 3 TAB) PO SCH (21:00)
[2024-04-15] MEDS ORDERED: atorvastatin 10mg tablet PO SCH (21:00)
[2024-04-16] MEDS ORDERED: pantoprazole 40mg Tablet.DR PO SCH (07:30)
[2024-04-16] MEDS ORDERED: amLODIPine 5mg tablet PO SCH (08:00)
[2024-04-16] MEDS ORDERED: losartan 50mg tablet PO SCH (08:00)
[2024-04-16] MEDS ORDERED: cetirizine 10mg tablet PO SCH (08:00)
[2024-04-16] MEDS ORDERED: famotidine 20mg tablet PO SCH (08:00)
[2024-04-16] MEDS ORDERED: HYDROchlorothiazide 25mg tablet PO SCH (08:00)
[2024-04-16] MEDS ORDERED: venlafaxine XR 75mg capsule (Q24H) PO SCH (08:00)
== END 2024-04-15 16:05 | disposition home or self-care (01) ==
LOC: ER 22:50
DX: S80.02XA Contusion of left knee, initial encounter (principal); S80.01XA Contusion of right knee, initial encounter; F41.9 Anxiety disorder, unspecified; G47.00 Insomnia, unspecified; Z88.1 Allergy status to other antibiotic agents; Z88.2 Allergy status to sulfonamides; W19.XXXA Unspecified fall, initial encounter; Y93.89 Activity, other specified; Y92.89 Other specified places as the place of occurrence of the external cause; Y99.8 Other external cause status
CPT/HCPCS: 36415; 73560; 80053; 81001; 83690; 83735; 85025; 96372; 99284; J2060

== ENCOUNTER 2024-04-15 19:11 | Emergency (ER) | payer MEDICAID ==
[~2024-04-15] VITALS: Ht 180.3 cm; Wt 137.0 kg
[~2024-04-15 19:11] MED LIST changes: +BUSP15TA7 PO; +QUET-1 PO; +VENL150C58 PO; +VENL75CA61 PO
[2024-04-15 20:28] LABS: BASOPHILS % (AUTO) 0.1 % (0-1); EOSINOPHILS % (AUTO) 0.1 % (0-6); HEMATOCRIT 35.5 % (42.0-52.0); HEMOGLOBIN 12.5 g/dl (14.0-17.9); LYMPHOCYTES % (AUTO) 15.9 % (21-51); MEAN CORPUSCULAR HEMOGLOBIN 31.6 PG (27.0-31.0); MEAN CORPUSCULAR HGB CONC 35.2 g/dL (33.0-36.5); MEAN CORPUSCULAR VOLUME 89.8 FL (78-98); MEAN PLATELET VOLUME 8.9 FL (7.4-10.4); MONOCYTES # (AUTO) 1.4 X10'3 (0-0.9); NEUTROPHILS # (AUTO) 9.2 X10'3 (1.8-7.7); NEUTROPHILS % (AUTO) 72.9 % (42-75); PLATELET COUNT 310 X10'3 (140-440); RED BLOOD COUNT 3.96 X10'6 (4.70-6.10); RED CELL DISTRIBUTION WIDTH 12.9 % (11.5-14.5); WHITE BLOOD COUNT 12.7 X10'3 (4.5-11.0)
[2024-04-15 20:38] LABS: ALBUMIN 3.8 G/DL (3.4-5.0); ANION GAP 8 (8-16); BLOOD UREA NITROGEN 15 MG/DL (7-18); BUN/CREATININE RATIO 18.3 (10.0-20.0); CALCIUM 8.6 MG/DL (8.5-10.1); CHLORIDE 93 MMOL/L (99-107); CREATININE 0.82 MG/DL (0.60-1.10); GLUCOSE 102 MG/DL (70-104); MAGNESIUM 1.9 MG/DL (1.5-2.4); POTASSIUM 3.1 MMOL/L (3.5-5.1); SODIUM 125 MMOL/L (135-145); TOTAL CARBON DIOXIDE 23.7 MMOL/L (24-32); eCRCL 128 ML/MIN; eGFR > 90 ML/MIN
[2024-04-15] MEDS: potassium Cl 20 mEq SR tablet PO STA (21:15)
[2024-04-15] MEDS: sodium chloride 1gm tablet PO ONE (21:16)
[2024-04-15] MEDS: ondansetron 4mg rapidly disintigrating tab PO ONE (21:16)
[2024-04-15 21:30] LABS: BILIRUBIN,URINE NEGATIVE (Neg); CLARITY,URINE CLEAR (Clear); COLOR,URINE YELLOW (Yellow); GLUCOSE, URINE NEGATIVE (Neg); KETONES,URINE NEGATIVE (Neg); LEUKOCYTE ESTERASE ,URINE NEGATIVE (Neg); NITRITES, URINE NEGATIVE (Neg); OCCULT BLOOD,URINE NEGATIVE (Neg); PROTEIN,URINE NEGATIVE (Neg); UA COLLECTION TYPE CLN CATCH MIDSTREAM; UROBILINOGEN,URINE 0.2 E.U/dL (0.2-1.0)
[2024-04-17] MEDS: ondansetron 4mg rapidly disintigrating tab PO ONE (03:32)
[2024-04-17] MEDS: sodium chloride 1gm tablet PO SCH (03:32)
[2024-04-17] MEDS: potassium Cl 20 mEq SR tablet PO STA (03:33)
[2024-04-17 12:43] VITALS: BP 139/87; PULSE 92; RESP 16; TEMP 98.6; O2SAT 99
== END 2024-04-17 13:20 | disposition home or self-care (01) ==
LOC: ER 19:12
DX: S50.01XA Contusion of right elbow, initial encounter (principal); Z88.1 Allergy status to other antibiotic agents; Z88.8 Allergy status to other drugs, medicaments and biological substances; Z79.899 Other long term (current) drug therapy; W18.39XA Other fall on same level, initial encounter; Y93.89 Activity, other specified; Y92.009 Unspecified place in unspecified non-institutional (private) residence as the place of occurrence of the external cause; Y99.8 Other external cause status; Z88.2 Allergy status to sulfonamides
CPT/HCPCS: 36415; 73080; 73200; 80048; 81003; 83735; 84100; 85025; 99285

== ENCOUNTER 2024-10-09 08:49 | Emergency (ER) | payer MEDICAID ==
[~2024-10-09] VITALS: Ht 180.3 cm; Wt 142.0 kg
[~2024-10-09 08:49] MED LIST changes: -ATOR10TA70 PO; -BUSP10TA11 PO; -CELE-148 PO; -FAMO40TA58 PO; -MELA1TAB28 PO; -NYSPWD TP; -TEMA15CA5 PO; -VENL37.59 PO
[2024-10-09 08:54] VITALS: TEMP 99.8
--- NOTE | 2024-10-09 10:41 | Physician Documentation ---
History of Present Illness ~ Chief Complaint: Wound Stated Complaint: FOOT ULCER Time Seen by MD: 10:16 Primary Medical Doctor: Pierce Barnett (Psych), dr morrell pcp Mode of Arrival: EMS HPI 39-year-old male, history of chronic right leg wounds who presents with worsening pain and redness to his wounds He tells me that he has had a wound in his right lower leg and right heel over the past month. Recently it has become more red, swollen and painful. He has had some bleeding from the wound on his heel. He was treated recently with Augmentin, finished about 1 week ago, but does not feel like it made him much better. He saw his primary doctor yesterday, who told him he needed to go to the emergency department to be treated for the infection. He denies any fevers or chills. No other systemic symptoms. Tetanus within 5 years?: No Medication Reconciliation Allergies: Coded Allergies: divalproex sodium (Verified Allergy, Severe, Hives, 10/09/24) Sulfa (Sulfonamide Antibiotics) (Verified Allergy, Intermediate, Nausea Stomach pain, 10/09/24) cephalexin (Verified Allergy, Intermediate, Nausea Vomiting, 10/09/24) lactose (Verified Allergy, Unknown, 10/09/24) trazodone (Verified Allergy, Unknown, 10/09/24) Scheduled Amlodipine Besylate (Amlodipine Besylate), 1 TAB PO DAILY, (Reported) Buspirone HCl (Buspirone HCl), 1 TAB PO TID, (Reported) Cetirizine HCl (Cetirizine HCl), 1 TAB PO QAM, (Reported) Doxycycline Monohydrate (Doxycycline), 1 TAB PO Q12H Hydrochlorothiazide (Hydrochlorothiazide), 1 TAB PO DAILY, (Reported) Levofloxacin (Levofloxacin), 1 TAB PO DAILY Losartan Potassium (Losartan Potassium), 1 TAB PO QAM, (Reported) Pantoprazole Sodium (Protonix), 40 MG PO DAILY, (Reported) Quetiapine Fumarate (Seroquel), 1 TAB PO HS Venlafaxine Hcl (Venlafaxine Hcl Er), 1 CAP PO QAM, (Reported) Venlafaxine Hcl (Venlafaxine Hcl Er), 1 CAP PO DAILY, (Reported) Zafirlukast (Zafirlukast), 2 TAB PO HS, (Reported) Miscellaneous Medications Semaglutide (Ozempic), (Reported) Past Medical History Past Medical History: *DERMATOLOGY*, *PSYCH* Past Surgical History: other Patient History: Patient reports no known family medical history. Alcohol Use: None Drug Use: none Lives In: Home Review of Systems Constitutional: Denies: fever Musculoskeletal: Reports: pain Integumentary: Reports: rash Physical Exam Vital Signs: Temperature: 99.8, Source: Oral, Heart Rate: 90, Respiratory Rate: 14, BP: 110/66, Pulse Oximetry: 98, Weight: 142.000 Oxygen Flow Rate: 0 Physical Exam General: This is a nontoxic-appearing young man, lying quietly in bed HEENT: Atraumatic, oropharynx is moist Heart: Regular rate and rhythm, normal-appearing peripheral perfusion Lungs: normal work of breathing, normal oxygen saturation on room air Extremities: The patient has pitting edema to bilateral lower extremities. Right lower extremity: The patient has a wound over the right lateral lower leg, with a scab, and surrounding beefy red erythema. He also has a deeper wound approximately 2 cm in diameter, over the heel, with surrounding beefy red erythema, no current drainage. He is tender to palpation in these regions. There is erythema extending from the heel wound up to the leg wound. No streaking redness up the leg above the wounds Neuro: Alert and oriented Psychiatric: Calm and cooperative with exam Progress Results/Orders Results/Orders Orders - PIERCE DOBSON MD Culture Blood (10/09/24 10:28) Foot,Limited (Ap/Lat) (10/09/24 10:28) Completed Orders - PIERCE DBOSON MD C-Reactive Protein (10/09/24 10:28) Cbc/Diff (10/09/24 10:28) CMP (10/09/24 10:28) ESR (10/09/24 10:28) Lacticsepsis (10/09/24 10:28) Foot,Limited (Ap/Lat) (10/09/24 10:28) Ceftriaxone Im Kit W/Lidocaine (Rocephin (10/09/24 12:25) Doxycycline 100mg Capsule (Vibramycin 10 (10/09/24 12:25) Medications Received in ER Medications (Trade) Dose Ordered Sig/Levi Route PRN Reason Start Time Stop Time Status Last Admin Dose Admin (Rocephin 1GM IM kit (w/lidocaine diluent)) 1,000 mg ONCE ONCE IM 10/09/24 12:25 10/09/24 12:26 DC 10/09/24 13:07 1,000 MG (VIBRAMYCIN 100mg capsule) 100 mg ONCE ONCE PO 10/09/24 12:25 10/09/24 12:26 DC 10/09/24 13:05 100 MG Vital Signs 10/09/24 10/09/24 10/09/24 10/09/24 08:54 09:03 10:21 11:43 Temp 99.8 Pulse 107 90 84 Resp 14 14 14 B/P (MAP) 141/75 110/66 (81) 118/73 (88) Pulse Ox 98 98 97 O2 Flow Rate 0 0 0 10/09/24 10/09/24 10/09/24 12:50 13:24 13:53 Pulse 73 89 96 Resp 13 14 20 B/P (MAP) 128/82 (97) 137/80 (99) 137/87 Pulse Ox 97 100 97 O2 Flow Rate 0 0 Laboratory Tests Test 10/09/24 10:44 10/09/24 10:51 Lactic Acid Level 1.3 White Blood Count 8.3 Red Blood Count 4.04 L Hemoglobin 12.5 L Hematocrit 36.7 L Mean Corpuscular Volume 90.7 Mean Corpuscular Hemoglobin 31.0 Mean Corpuscular Hemoglobin Concent 34.2 Red Cell Distribution Width 12.7 Platelet Count 293 Mean Platelet Volume 8.9 Neutrophils (%) (Auto) 63.9 Lymphocytes (%) (Auto) 22.7 Monocytes (%) (Auto) 10.1 Eosinophils (%) (Auto) 3.2 Basophils (%) (Auto) 0.1 Neutrophils # (Auto) 5.3 Lymphocytes # (Auto) 1.9 Monocytes # (Auto) 0.8 Eosinophils # (Auto) 0.3 Basophils # (Auto) 0.0 CBC Comment Erythrocyte Sedimentation Rate 25 H Sodium Level 139 Potassium Level 3.3 L Chloride Level 105 Carbon Dioxide Level 26.9 Anion Gap 7 L Blood Urea Nitrogen 12 Creatinine 0.87 Estimated GFR/1.73 m2 > 90 BUN/Creatinine Ratio 13.8 Glucose Level 81 Calcium Level 8.5 Total Bilirubin 0.5 Aspartate Amino Transf (AST/SGOT) 15 Alanine Aminotransferase (ALT/SGPT) 11 L Alkaline Phosphatase 112 C-Reactive Protein 0.32 Total Protein 7.3 Albumin 3.6 Globulin 3.7 Albumin/Globulin Ratio 1.0 L Chemistry Comments Microbiology Date/Time Source Procedure Growth Status 10/09/24 10:51 Blood Arm Right Blood Culture - Preliminary NEGATIVE (LESS THAN 24 HOURS) Resulted EKG/XRAY/CT/US/VASC/MRI Bone/Soft Tissue X-Ray (Ext.) : Additional Comment I personally interpreted the x-ray, and it shows: No obvious osteomyelitis changes Medical Decision Making Differential Dx:Considerations: Include: Abscess, Cellulitis, Healing wound Additional Comment The patient presents with worsening pain and redness to his chronic right leg wounds. On exam he does have findings concerning for cellulitis as well as a deep wound over his heel that needs evaluation for osteomyelitis. He has already been on antibiotics recently, and still has worsening symptoms. He was sent here by his primary care doctor, it appears for further treatment of worsening infection. Here in the ED he is afebrile. He has no significant leukocytosis. Lactate normal. X-ray of his heel does not show findings concerning for osteomyelitis. I did offer admission to the patient for IV antibiotics. I spoke with the patient and his mother. Following this discussion, they did not want to stay in the hospital and declined admission. He was then given a dose of ceftriaxone and he will be discharged with doxycycline and levofloxacin. A referral was pl aced for wound care clinic. Return precautions were given for signs of worsening infection. Departure Time of Disposition: 12:55 Disposition: 01 HOME / SELF CARE / HOMELESS Impression: Primary Impression: Wound cellulitis Condition: Stable Discharge Instructions: Cellulitis, Adult Referrals: NO PRIMARY CARE PROVIDER (PCP) Prescriptions Doxycycline Monohydrate (Doxycycline) 150 Mg Tablet 1 TAB PO Q12H for 10 Days, #20 TAB Prov: PIERCE DOBSON MD 10/09/24 Levofloxacin (Levofloxacin) 750 Mg Tablet 1 TAB PO DAILY for 10 Days, #10 TAB Prov: PIERCE DOBSON MD 10/09/24 Education Educated: Patient Educated regarding: diagnosis, treatment, need for follow up Signature Scribe Signature: na Attestation: PIERCE Elliott MD Oct 09, 2024 10:41
[2024-10-09 11:01] LABS: MEAN PLATELET VOLUME 8.9 FL (7.4-10.4); RED CELL DISTRIBUTION WIDTH 12.7 % (11.5-14.5)
--- NOTE | 2024-10-09 11:01 | RADIOLOGY REPORT ---
CLINICAL INDICATION: wound over RIGHT heel, eval osteo TECHNIQUE: 3 right DI FOOT,LIMITED (AP/LAT) Comparison: DI KNEE LIMITED (AP/LAT) on DOS: 04/15/24, DI KNEE LIMITED (AP/LAT) on DOS: 04/15/24 FINDINGS/IMPRESSION: : There is no evidence of acute fracture or dislocation. Soft tissues are unremarkable.
[2024-10-09 11:18] LABS: CREATININE 0.87 MG/DL (0.60-1.10); TOTAL CARBON DIOXIDE 26.9 MMOL/L (24-32); eCRCL 119 ML/MIN; eGFR > 90 ML/MIN
[2024-10-09] MEDS ORDERED: DOXY150T3 PO (12:56)
[2024-10-09] MEDS ORDERED: LEVO750T68 PO (12:57)
[2024-10-09] MEDS: DOXYCYCLINE 100MG CAPSULE PO ONE (13:05)
[2024-10-09] MEDS: CefTRIAXone 1000mg IM Kit (w/lidocaine diluent) IM ONE (13:07)
[2024-10-09 13:53] VITALS: BP 137/87; PULSE 96; RESP 20; O2SAT 97
== END 2024-10-09 13:55 | disposition home or self-care (01) ==
LOC: ER 08:50
DX: L03.115 Cellulitis of right lower limb (principal); Z88.2 Allergy status to sulfonamides; Z88.1 Allergy status to other antibiotic agents; Z79.899 Other long term (current) drug therapy; Z88.8 Allergy status to other drugs, medicaments and biological substances
CPT/HCPCS: 36415; 73620; 80053; 83605; 85025; 85651; 86140; 87040; 96372; 99285; J0696